=== PATIENT | male | born 1960 | race Caucasian/White ===

== ENCOUNTER → 2017-06-21 | Outpatient (CLI) | payer OTHER ==
[~2017-06-21] MED LIST: AMARYL4 MG PO; BYETTA PEN 11 PENIN1; DICLOFENAC SOD50 M1 PO; FARXIGA10 MG PO; HYDROCODON-ACE1 EAC7 PO; LISINOPRIL5 MG PO; METFORMIN; MICRONASE1.25 MG; PEPCID40 MG PO; PERCOCET PO; TRULICITY1.5 MG/0.5 SUBQ
--- NOTE | 2017-07-06 09:02 | PAINCON ---
[address] [address] PAIN MANAGEMENT CONSULTATION Name: TARA CHAVEZ Room: [facility]#: [id number] Admission: 06/21/17 Attend Phys: Gilberto Vences DO Discharge: Date of : 56 Report #: [id number] THIS REPORT FOR: //name// CC: Gilberto Mena DO DATE OF SERVICE: 06/21/2017 REFERRING PHYSICIAN: Armand Mena DO CHIEF COMPLAINT: Neck pain, left upper extremity pain and paresthesias. HISTORY OF PRESENT ILLNESS: As you know, the patient is a very pleasant 57-year-old male who returns today in followup visit reporting 100% improvement in overall pain for 4 weeks after his epidural injection. He "felt great." This lasted until around [place] Day, then he had a slow and progressive return of symptoms, no inciting injury or trauma. He returns today in followup visit to discuss options for treatment. He is placing pain score today 5/10. ALLERGIES: No known drug allergies. CURRENT MEDICATIONS: Farxiga, Trulicity Amaryl, and Zestril. SOCIAL HISTORY: The patient denies tobacco, alcohol, IV or illicit drug use. He is a chase by trade. He is working, not receiving workmen's compensation nor he is trying to obtain disability benefits. He is unaccompanied today. IMAGING: No new imaging available. PHYSICAL EXAMINATION: VITAL SIGNS: Blood pressure 136/88, pulse 76, respiratory rate 16 and unlabored, the patient is 95% on room air, current temperature 98.2 degrees Fahrenheit, height 6 feet tall, weight 255 pounds, and BMI calculated 34.7. GENERAL: Well-developed, well-nourished, well-hydrated 57-year-old male, appearing his stated age, placing current pain score 5/10. HEENT: Normocephalic, atraumatic. Pupils are equal, round, and reactive to light. Extraocular muscles are intact. NEUROLOGIC: Speech fluent. EXTREMITIES: Show no clubbing, no cyanosis, and no edema. MUSCULOSKELETAL: Upper extremity strength is symmetrical again today 5/5. He is intact to light touch from C5-T1 dermatomes. Muscle bulk and tone equal and symmetrical in the upper extremities. Cervical provocation testing including extension and rotation all intensify neck pain. Spurling's test positive left, negative right. Deep tendinous reflexes are symmetrical at biceps, brachialis, [place] [address] PAIN MANAGEMENT CONSULTATION Name: TARA CHAVEZ Room: [facility]#: [id number] Admission: 06/21/17 Attend Phys: Gilberto Vences DO Discharge: Date of : 56 Report #: [id number] ASSESSMENT: 1. Cervical radiculopathy. 2. Cervical spinal stenosis. 3. Displacement of cervical intervertebral disk with radiculopathy. 4. Neural foraminal stenosis of the cervical spine. 5. Chronic intractable pain. PLAN: 1. The patient returns today in followup visit indicating a pain level of 5/10. At present, the patient is wishing to delay the next in a series of epidural injections as he is having increased activity at work and will not be able to take some time off after the injection. He wishes to delay the injection for at least 2-3 weeks, once he is able to slow his work levels down at his job, he would like to undergo the next in the series of cervical epidural injections. He received excellent benefit near 100% improvement in overall pain with the treatment. We will schedule the patient back in followup visit at his earliest convenience to undergo the procedure. 2. We will start the patient on hydrocodone 5/325 one tab every 8 hours p.r.n. for pain, I have given the patient #90 tablets, advised the patient to take the medication only as directed. He is not to take the medication prophylactically. This should help ease some of the pain he might experience during the next couple of weeks, we will then be available to see the patient back in followup visit to provide the epidural injection and wean off opioids. 3. The patient will be started on diclofenac sodium 50 mg dose 1 tab p.o. t.i.d., I have given the patient #90 tablets, he is to take this with meals, he is not to take the medication if he notes any side effects of dyspepsia, worsening of blood pressure, lower extremity edema. If no side effects, continue the medication as directed. 4. We will see the patient back in followup visit once he is able to undergo next in the series of epidural injections, which should be in the next 3 weeks. <ELECTRONICALLY SIGNED> By: Gilberto Vences DO 07/06/17 0902 0815 [id number] Vences DO /nt
== END ==
LOC: M.PC 00:55
DX: M48.02 Spinal stenosis, cervical region (principal); M50.20 Other cervical disc displacement, unspecified cervical region; G89.29 Other chronic pain

== ENCOUNTER → 2017-07-05 | Outpatient (CLI) | payer OTHER ==
--- NOTE | 2017-07-14 09:00 | PAINCON ---
[address] [address] PAIN MANAGEMENT CONSULTATION Name: TARA CHAVEZ Room: [facility]#: [id number] Admission: 07/05/17 Attend Phys: Gilberto Vences DO Discharge: Date of : 56 Report #: [id number] THIS REPORT FOR: //name// CC: Gilberto Mena DO DATE OF SERVICE: 07/05/2017 REFERRING PHYSICIAN: Armand Mena DO. CHIEF COMPLAINT: Neck pain, left upper extremity pain and paresthesias. HISTORY OF PRESENT ILLNESS: As you know, the patient is a very pleasant 57-year-old male who returns today in followup visit to undergo cervical epidural injection under fluoroscopic guidance. The patient has completed his tasks with the relocation of the [facility] offices and he is now returning in followup visit requesting epidural injection under fluoroscopic guidance to address his 08/21 pain. States his pain has progressively worsened. He returns for the cervical epidural injection. He denies specific injury or trauma that led to recurrence of pain. He returns today reporting pain is exacerbated with activities, lying down, movement and utilizing his left upper extremity, improves with medications, activities and cervical epidural injection. ALLERGIES: No known drug allergies. CURRENT MEDICATIONS: Farxiga 10 mg once a day, Trulicity 1.5 mg subcutaneous per week, glimepiride 4 mg per day, lisinopril 5 mg per day, diclofenac 50 mg 3 times a day, [place] 5/325 three times a day. SOCIAL HISTORY: The patient denies tobacco, alcohol, IV or illicit drug use. 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 IMAGING: No new imaging available. PHYSICAL EXAMINATION: VITAL SIGNS: Blood pressure 115/64, pulse 84, respiratory rate 16, unlabored. The patient is 96% on room air, current temperature 98.3 degrees Fahrenheit, height 6 feet tall, weight 250 pounds, BMI calculated 34.0. GENERAL: Well-developed, well-nourished, well-hydrated 57-year-old male who appears his stated age, placing current pain score 3/10. HEENT: Normocephalic, atraumatic. Pupils equal, round, reactive to light. EXTREMITIES: Show no clubbing, no cyanosis, no edema. MUSCULOSKELETAL: Upper extremity strength is equal and symmetrical 5/5, intact to light touch from C5-T1 dermatomes. [place] [address] PAIN MANAGEMENT CONSULTATION Name: TARA CHAVEZ Room: [facility]#: [id number] Admission: 07/05/17 Attend Phys: Gilberto Vences DO Discharge: Date of : 56 Report #: [id number] extension, rotation, lateral flexion all intensify axial low back pain. Spurling's test positive left. ASSESSMENT: 1. Cervical radiculopathy. 2. Cervical spinal stenosis. 3. Displacement of a cervical intervertebral disk with radiculopathy. 4. Neural foraminal stenosis of the cervical spine. 5. Chronic intractable pain. PLAN: 1. The patient returns today in followup visit to undergo the second in series of cervical epidural injections. The patient gained excellent benefit with previous cervical epidural injection. He has completed all the major activity of relocating the [facility] and thus he is able to now undergo the cervical epidural injection and reduce his activity over the next couple of days. The patient has been advised the risks and benefits of repeating cervical epidural injection. These risks include but are not necessarily limited to bleeding, bruising, infection, worsening pain, no relief of pain, also risk of temporary or permanent muscle weakness, temporary or permanent nerve damage, possible paralysis and . The patient states understood and wished to proceed. 2. We will see the patient back in followup visit on an as needed basis for the next in the series of cervical epidural injections. PROCEDURE NOTE: DESCRIPTION OF PROCEDURE: C7-T1 cervical epidural steroid injection under fluoroscopic guidance. This is the second procedure of the first series that the patient is undergoing. After obtaining written consent, the patient was taken back to the fluoroscopy suite and placed in a prone position with separate pillows under the chest and forehead to decrease cervical lordosis. The skin overlying the cervical area was prepped and draped in an aseptic fashion. The C7-T1 vertebral interspace was identified by AP fluoroscopy. The skin and subcutaneous tissue overlying the target site of injection was anesthetized using 3 mL of 1% lidocaine. A 20-gauge 3-1/2 inch Tuohy needle was advanced under fluoroscopic guidance toward the epidural space using a midline approach. The epidural space was identified using a loss of resistance to air technique. After negative aspiration for heme or cerebrospinal fluid, a total of 1 mL of Omnipaque was injected. A cervical epidurogram was confirmed using AP and oblique fluoroscopy. After negative aspiration for heme or cerebrospinal fluid, 5 mL of a solution containing 2 mL 40 mg per mL, 80 mg total triamcinolone, 3 mL lidocaine 1% was injected in increments. Contrast spread was noted from [address] [address] PAIN MANAGEMENT CONSULTATION Name: TARA CHAVEZ Room: [facility]#: [id number] Admission: 07/05/17 Attend Phys: Gilberto Vences DO Discharge: Date of : 56 Report #: [id number] posterior epidural space. The needle was then retracted approximately fpc and the needle track was flushed with 1 mL of 1% lidocaine. There were no apparent new sensory deficits in the upper extremities present following the procedure. A sterile bandage was placed over the injection site. The heart rate, pulse oximetry and blood pressure were continuously monitored after the procedure. There were no apparent complications. The patient tolerated the procedure well and was carefully escorted in the recovery room in stable condition. After meeting discharge criteria, the patient was discharged home. <ELECTRONICALLY SIGNED> By: Gilberto Vences DO 07/14/17 0900 [id number] [id number] Vences DO /nt
== END | disposition home or self-care (01) ==
LOC: M.PC 01:18
DX: M50.10 Cervical disc disorder with radiculopathy, unspecified cervical region (principal); G89.29 Other chronic pain; M48.02 Spinal stenosis, cervical region; Z79.899 Other long term (current) drug therapy; Z79.891 Long term (current) use of opiate analgesic

== ENCOUNTER → 2017-08-04 | Outpatient (CLI) | payer OTHER ==
--- NOTE | 2017-08-09 07:49 | PAINCON ---
[address] [address] PAIN MANAGEMENT CONSULTATION Name: TARA CHAVEZ [id number] Admission: 08/04/17 Attend Phys: Krista Zapata Discharge: Date of : 56 Report #: [id number] THIS REPORT FOR: //name// CC: Armand Vences HISTORY OF PRESENT ILLNESS: The patient is a 57-year-old gentleman, prior seen by Dr. Gilberto Vences for symptomatic cervical radiculopathy, had cervical epidural injection number two on 07/04/2017. The patient notes that while injection afforded excellent relief, pain is beginning to recur without antecedent trauma and overuse, has tingling going to the left index and long finger, has aching in the upper arm. The patient had prior been seen by Neurosurgery at [facility], though symptoms were relatively quiescent at that time. Today, his symptoms have been more problematic, he rates his pain 3-4 on a VAS, notes they have been ongoing for about 9 months. I did review his MRI from 04/23/2017. It does note multilevel spondylosis with thecal sac compression at C5-C6 and C6-C7, moderate advanced bilateral neural foraminal narrowing at C6-C7, moderate left neural foraminal narrowing at C5-C6. The patient's symptoms are more in a C7 radicular pattern. PHYSICAL EXAMINATION: VITAL SIGNS: Blood pressure 119/68, pulse 87, respirations 16. BMI 33.1 kilograms per meter squared. NEUROLOGIC: Cervical range of motion shows grossly positive Lhermitte's radiating to the left. Left triceps strength is diminished compared to the right. Deep tendon reflexes show absent left triceps reflex 1/4 for the brachioradialis and biceps. Tinel's is negative. ASSESSMENT: 1. Symptomatic cervical radiculopathy with clinical exam and history. RECOMMENDATIONS: 1. The patient stated that hydrocodone afforded no efficacy. I have taken the liberty of writing a small prescription of Percocet 5/325, 45 tablets to be used only if symptoms recur after this injection. 2. Cervical epidural injection under fluoroscopy today. 3. Strongly recommend if symptoms recur the patient follow up with his neurosurgeon at for more definitive intervention. ASSESSMENT: Symptomatic cervical radiculopathy. PROCEDURE: Cervical epidural injection under fluoroscopy. PROCEDURE NOTE: After written and informed consent [place] [address] PAIN MANAGEMENT CONSULTATION Name: TARA CHAVEZ Room: [facility]#: [id number] Admission: 08/04/17 Attend Phys: Krista Zapata Discharge: Date of : 56 Report #: [id number] of dural puncture, spinal cord trauma, paralysis and increased pain, the patient was taken to the fluoroscopy suite and placed in the prone position, with appropriate abdominal bolstering, neck was flexed, palms under the thighs. Skin was prepped with ChloraPrep. Sterile draping was applied. Skin wheal with 1% Xylocaine was raised. A 22-gauge 3-1/2 inch epidural Tuohy needle was placed via a midline approach at the C7-T1 interspace, advanced under biplanar fluoroscopy using continuous loss of resistance. With appropriate loss of resistance at the expected depth on lateral view, the glass loss of resistance syringe was disconnected. A low volume extension tubing was connected to the needle and a 5 mL syringe. Negative aspiration for cerebrospinal fluid or blood was noted. A 1 mL of Omnipaque was injected which showed spread within the epidural space on biplanar fluoroscopy. This was followed with 80 mg of triamcinolone plus 1 mL of 1.5% preservative Xylocaine. Needle was withdrawn to the interspinous ligament, 0.5 mL of Xylocaine was used to flush the needle. The needle was then completely withdrawn. The area was cleansed. Band-Aid was applied. The patient was allowed to move off the procedure table and ambulated to the recovery room, monitored for an appropriate period of time, discharged in good and stable condition. ASSESSMENT: 2. Neuropathic pain component, chronic pain syndrome and complex medication management. RECOMMENDATION: Percocet 5/325 prescription as noted above, 1 tablet 2-3 times a day, limit 45 tablets for 30 days. <ELECTRONICALLY SIGNED> By: Armand Vences DO 08/09/17 0749 1220 [id number] Vences DO /nt
== END ==
LOC: M.PC 01:42
DX: M54.12 Radiculopathy, cervical region (principal); Z68.33 Body mass index [BMI] 33.0-33.9, adult; G89.4 Chronic pain syndrome

== ENCOUNTER → 2021-01-03 | Outpatient (CLI) | payer OTHER | LOC: M.MRI 14:23 | PROVIDERS: ATTEND Family Medicine | DX: M50.122 Cervical disc disorder at C5-C6 level with radiculopathy (principal); M48.02 Spinal stenosis, cervical region; M25.78 Osteophyte, vertebrae ==